=== PATIENT | male | born 1955 | race Caucasian/White ===

== ENCOUNTER 2016-10-10 15:08 | Observation (INO) | payer MEDICARE, OTHER ==
[~2016-10-10] VITALS: Ht 170.2 cm; Wt 78.9 kg
[~2016-10-10 15:08] MED LIST: ASPIRIN EC81 MG PO
[2016-10-10 16:13] LABS: BUN/CREATININE RATIO 13 (0-10)
[2016-10-10 16:25] LABS: HEMOGLOBIN 12.4 gm/dl (14.0-17.5); RED BLOOD COUNT 3.64 M/UL (4.20-5.50); WHITE BLOOD COUNT 4.1 K/UL (4.5-11.0)
[2016-10-11] MEDS ORDERED: HUMALOG 10100 UNITS/ SC (01:30)
[2016-10-11] MEDS ORDERED: IMDUR ER TAB 3030 MG PO (01:31)
[2016-10-11] MEDS ORDERED: KIONEX15 GM/60 M PO (01:31)
[2016-10-11] MEDS ORDERED: CHRONULAC20 GM/30 M PO (01:31)
[2016-10-11] MEDS ORDERED: LANTUS100 UNIT/1 SQ ×2 (01:32→01:38)
[2016-10-11] MEDS ORDERED: MAG-OX 400 TAB400 MG PO (01:33)
[2016-10-11] MEDS ORDERED: MELATONIN5 MG PO (01:33)
[2016-10-11] MEDS ORDERED: NAMENDA XR28 MG PO (01:34)
[2016-10-11] MEDS ORDERED: METOPROLOL SUCC50 MG PO (01:34)
[2016-10-11] MEDS ORDERED: ALDACTONE 25MG25 MG PO (01:35)
[2016-10-11] MEDS ORDERED: NITROSTAT 0.40.4 MG SL (01:35)
[2016-10-11] MEDS ORDERED: FLOMAX 0.4 MG0.4 MG PO (01:36)
[2016-10-11] MEDS ORDERED: TRADJENTA5 MG PO (01:36)
[2016-10-11] MEDS ORDERED: TRAZODONE HCL50 MG PO (01:37)
[2016-10-11] MEDS ORDERED: XIFAXAN 550 MG550 MG PO (01:37)
== END 2016-10-11 19:00 | disposition home or self-care (01) ==
LOC: ER1 15:08 → M/S 18:18 → ZEROF 18:18 → M/S 10-11 00:16
PROVIDERS: Emergency Medicine; ADMIT Internal Medicine
DX: R07.89 Other chest pain (principal); K74.60 Unspecified cirrhosis of liver; D61.818 Other pancytopenia; I25.10 Atherosclerotic heart disease of native coronary artery without angina pectoris; I10 Essential (primary) hypertension; E11.9 Type 2 diabetes mellitus without complications; E78.5 Hyperlipidemia, unspecified; F17.210 Nicotine dependence, cigarettes, uncomplicated; Z85.038 Personal history of other malignant neoplasm of large intestine; Z88.5 Allergy status to narcotic agent; Z79.899 Other long term (current) drug therapy; Z95.1 Presence of aortocoronary bypass graft
CPT/HCPCS: ECHO; 36415; 71010; 76705; 80053; 80074; 82550; 82553; 82962; 83036; 83690; 84484; 85025; 85610; 85730; 93005; 93306; 99285; G0378; J1650; J7030